=== PATIENT | male | born 1980 ===

== ENCOUNTER 2022-04-11 04:12 | Emergency (ER) | payer MEDICAID, SELFPAY ==
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
[2022-04-11 04:21] VITALS: BP 106/53; BP 118/72; PULSE 66; PULSE 71; RESP 14; TEMP 36.9; O2SAT 95; O2SAT 97; BMI 22.9
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
--- OUTSIDE RECORDS SUMMARY | 2022-04-11 04:40 | XMS_ITS ---
:1980 Author Care Team Providers Name Role Phone Minerva Sierra Primary Care Provider Unavailable Allergies Code Code System Name Reaction Severity Status Onset Septra ? ? Active ? Medications Name Status Start Date Stop Date ? ? clonidine Active ? Not available clonidine HCl 0.1 mg tablet Active ? Not available Take 1 tablet 3 times a day by oral route as needed for 28 days . hydroxyzine HCl 25 mg tablet Active ? Not available Take 1 tablet 3 times a day by oral route as needed for 28 days . Narcan 4 mg/actuation nasal spray Active ? Not available Take 1 spray by nasal route as needed. Suboxone 8 mg-2 mg sublingual film Active ? Not available Place 2 films every day by sublingual route in the morning for 7 days. Vistaril Active ? Not available Problems Name Status Onset Date Source ? Anxiety Disorder Active 04/07/2022 ? Alcohol Dependence Active 04/07/2022 ? Opioid Dependence Active 04/07/2022 ? Attention Deficit Hyperactivity Disorder Active 022 ? Procedures None recorded. Results Lab Results Date Name Specimen Result Interpretation Description Value Range Status Address ? 04/07/2022 Drug UR ? Amphetamines negative 1,000 Geri l [facility] Screen, NG/mL NG/mL Health: [address], [place] ? ? UR ? Benzodiazapines negative 200 Final [facility] NG/mL NG/mL Health: [address], [place] ? ? UR ? Buprenorphine positive 5 NG/mL Final [facility] NG/mL Health: [address], [place] ? ? UR ? Cocaine negative 150 Final [facility] Metabolite NG/mL NG/mL Health : [address], [place] ? ? UR ? Opiates negative 300 Final [facility] NG/mL NG/mL Health: [address], [place] ? ? UR ? Oxycodone negative 300 Final [facility] NG/mL NG/mL Health: [address], [place] ? ? UR ? Fentanyl negative 2 NG/mL Final [place] NG/mL Health: [address], [place] ? ? UR ? Ethyl Alcohol negative 10 Final [facility] mg/dL mg/dL Health: [address], [place] ? ? UR ? Methadone negative 300 Final [place] Metabolite NG/mL NG/mL Health : [address], [place] ? ? UR ? Cannabinoids negative 50 Final [facility] (THC) NG/mL NG/mL Health: [address], [place] ? ? UR ? Urine Creatinine 274.0 >20 Final [facility] mg/dL mg/dL Health: [address], [place] ? ? UR ? Urine pH 5.40 4.5-9.0 Final [facility] Health: [address], [place] ? ? UR ? Specific Mobile 1.027 1.003-1 Final [facility] .035 Health: [address], [place] 04/07/2022 Methadone Urine ? Methadone negative ? ? [facility]_ , , [place]: Screen, [address] [facility] 04/07/2022 Buprenorp Urine ? Buprenorphine positive ? ? [facility]_ [facility] er: Screen, [address] [facility] Past Encounters 04/07/2022 Opioid Dependence; Anxiety Disorder; Alc ohol Dependence Rosey Babcock COUPON AND BOND COLLECTION CLERK: [address] [place] [address], Ph. Social History Tobacco Smoking Status Heavy Tobacco Smoker (1/2 pack per da y) Vaccine List None recorded. Plan of Care Reminders Provider Appointments None recorded. ? ? Lab None recorded. ? ? Referral None recorded. ? ? Procedures None recorded. ? ? Surgeries None recorded. ? ? Imaging None recorded. ? ? Vitals Height Weight BMI 5 ft 10 in 165 lbs 23.7 kg/m2
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
== END 2022-04-11 06:18 ==
PROVIDERS: Emergency Provider Internal Medicine
DX: S01.81XA Laceration without foreign body of other part of head, initial encounter (principal); Y04.2XXA Assault by strike against or bumped into by another person, initial encounter; Y93.89 Activity, other specified; Y92.9 Unspecified place or not applicable; Y99.9 Unspecified external cause status
CPT/HCPCS: 12013; 70450; 70486; 99282; 99284

== ENCOUNTER 2022-11-17 13:27 | Emergency (ER) | payer OTHER, SELFPAY ==
[2022-11-17 13:30] VITALS: BP 110/63; BP 119/67; PULSE 70; PULSE 99; RESP 18; TEMP 37; O2SAT 95; O2SAT 96; BMI 24.4
--- NOTE | 2022-11-17 13:52 | PC.NURSE ---
pt was having episodes of apnea and his o2 sat dropped to the 40's. he required verbal and physical stimulation to wake him, he was placed on supplemental o2 nc
--- NOTE | 2022-11-17 14:32 | ED.CHESTPAIN ---
HPI - Chest Pain General Chief Complaint: Chest Pain Stated Complaint: chest pain,weakness Time Seen by Provider: 11/17/22 13:37 History of Present Illness HPI narrative: Patient is a 41-year-old male presenting today with having chest tightness. Has a long history of heroin use. Patient uses both IV drugs and also sniff the heroin. He is unable to give detailed history. Patient keeps falling asleep mid sentence. His O2 sat drops to the 80s. He is unable to give detailed history. He admits to using heroin yesterday. Related Data Allergies Allergy/AdvReac Type Severity Reaction Status Date / Time sulfamethoxazole Allergy Unknown Verified 11/17/22 13:39 [From ] trimethoprim [From ] Allergy Unknown Verified 11/17/22 13:39 Review of Systems Review of Systems: Unable to obtain review of system Yes Unobtainable due to mental status [facility], [facility] Past Medical History Attestation statement: The following information was validated with the patient. Social History Social History Advance Directives: No Advance Directives Information Provided: No Physical Exam Vital Signs: Vital Signs: Last Vital Signs Temp 98.6 F 11/17/22 13:30 Pulse 99 11/17/22 13:30 Resp 18 11/17/22 13:30 BP 110/63 11/17/22 13:30 Pulse Ox 96 11/17/22 13:30 O2 Del Method Room Air 11/17/22 13:30 BMI result Body Mass Index 24.4 Appearance: Alert. Lethargic arousable to painful stimuli. No acute distress. Eyes: Pupils equal, round and reactive to light. ENT: Pharynx normal. Neck: Normal inspection. Neck supple. No lymph nodes noted. No crepitus CVS: Normal heart rate and rhythm. Pulses normal. Normal S1 and S2 Respiratory: No respiratory distress. Breath sounds normal. No Wheezing. No rales Abdomen: Soft and nontender. No rigidity. No distention. good BS x4 Skin: Skin warm and dry. Normal skin color. Normal skin turgor. Extremities: No lower extremity edema. Neurovascular intact to all extremities. No Lacerations. No Rash Neuro: Lethargic arousable to painful stimuli. No motor deficit. No sensory deficit. Moving all extermities. No slurred speech Medications Administered Discontinued Medications Generic Name Dose Route Start Last Admin Trade Name Lluvia PRN Reason Stop Dose Admin Sodium Chloride 1,000 mls @ 999 mls/hr 11/17/22 14:30 11/17/22 14:32 Ns IV 11/17/22 15:30 999 mls/hr .Q1H1M ROMI Administration Naloxone HCl 4 mg 11/17/22 14:27 11/17/22 14:33 Naloxone Hcl Nasal 4 Mg [place] NOSTRILALT 11/17/22 14:28 4 mg ONCE ONE Administration Medical Decision Making Medical Decision Making [facility] Narrative: Patient's pupils were pinpoint. Falls asleep mid-sentence. As decreased O2 sat. Patient's sugar was checked to be 118 is no evidence of hypoglycemia. Has a history of heroin use. For Narcan was given. Patient woke up immediately. Is now answering questions completing sentences. He is in no distress and O2 sat recover. A set of cardiac enzymes being sent. Labs ordered. Will monitor patient closely. A chest x-ray was ordered to rule out the possibility of pneumonia/pneumothorax. Patient's chest x-ray was negative for any acute evidence of pneumonia pneumothorax. Monitor in the emergency department after Narcan was given patient is awake alert O2 sat is maintained there is no gross hypoxia noted. Patient's cardiac enzyme was negative. EKG did not show any acute evidence of ACS. Will discharge patient home. Patient was monitored in the emergency department for over 2 hours. Explained to patient in need to stop using narcotics and stop using cocaine patient states understanding. Did not want detox at this time. Will discharge home Differential Diagnosis Differential Diagnoses: The differential diagnosis associated with the presentation includes Hypoglycemia, narcotic overdose, cardiac causes of chest tightness, pneumonia, pneumothorax Lab Data [facility] Lab Attestation statement: I reviewed the patient's lab results. 11/17/22 14:30 11/17/22 14:30 Labs: Lab Results 11/17/22 11/17/22 11/17/22 Range/Units 14:18 14:30 14:30 WBC 6.5 (4.8-10.8) X10*3/uL RBC 3.81 L (4.60-5.80) X10*6/uL Hgb 12.8 L (14.0-18.0) g/dl Hct 37.5 L (42.0-52.0) % MCV 98.4 H (80.0-98.0) fL MCH 33.6 H (27.0-33.0) pg MCHC 34.1 (31.0-36.0) g/dl RDW 13.3 (11.0-16.0) % Plt Count 179 (160-400) X10*3/uL MPV 9.8 (9.4-12.4) fL Immature Gran % (Auto) 0.3 (0.0-0.4) % Neut % (Auto) 74.7 H (45-73) % Lymph % (Auto) 15.8 L (20-40) % [place] % (Auto) 8.4 (2-11) % Eos % (Auto) 0.6 (0-4) % Baso % (Auto) 0.2 (0-2) % Lymph # (Auto) 1.0 L (1.2-4.9) X10*3/uL [place] # (Auto) 0.6 (0.1-1.2) X10*3/uL Eos # (Auto) 0.0 (0.0-0.4) X10*3/uL Baso # (Auto) 0.0 (0.0-0.2) X10*3/uL Abs Immat Gran (auto) 0.02 (0.00-0.03) X10*3/uL Absolute Neuts (auto) 4.9 (2.0-8.3) x10*3/uL Absolute Nucleated RBC 0.000 (0.0-0.012) X10*3/uL Nucleated RBC % (auto) 0.0 (0.0-0.2) /100WBC Sodium 143 (135-145) mmol/L Potassium 3.6 (3.3-5.1) mmol/L Chloride 108 (96-108) mmol/L Carbon Dioxide 26 (22-29) mmol/L Anion Gap 13 (12-20) BUN 8 L (9-16) mg/dL Creatinine 0.76 (0.5-1.4) mg/dL Estim Creat Clear Calc 129.4 Estimated GFR > 60 POC Glucose 113 (60-115) mg/dL Random Glucose 109 (60-115) mg/dL Calcium 8.8 (8.4-10.2) mg/dL Troponin I High Sens (<3.5-35.0) ng/L Urine Color Urine Appearance Urine pH (5.0-9.0) Ur Specific [place] (1.005-1.025) Urine Protein (Neg-Trace) mg/dL Urine Glucose (UA) (Negative) mg/dL Urine Ketones (Negative) mg/dL Urine Blood (Negative) Urine Nitrite (Negative) Ur Leukocyte Esterase (Negative) Urine RBC (0-2) /HPF Urine WBC (0-5) /HPF Ur Squamous Epith Cells (0-2) /HPF Calcium Oxalate Crystal Urine Bacteria (None Seen) Hyaline Casts (0-2) /LPF Urine Opiates Screen (Not Detect) Urine Fentanyl Screen (Not Detect) Ur Barbiturates Screen (Not Detect) Ur Phencyclidine Scrn (Not Detect) Ur Amphetamines Screen (Not Detect) U Benzodiazepines Scrn (Not Detect) Urine Cocaine Screen (Not Detect) U Marijuana (THC) Screen (Not Detect) 11/17/22 11/17/22 11/17/22 Range/Units 14:30 15:17 15:17 WBC (4.8-10.8) X10*3/uL RBC (4.60-5.80) X10*6/uL Hgb (14.0-18.0) g/dl Hct (42.0-52.0) % MCV (80.0-98.0) fL MCH (27.0-33.0) pg MCHC (31.0-36.0) g/dl RDW (11.0-16.0) % Plt Count (160-400) X10*3/uL MPV (9.4-12.4) fL Immature Gran % (Auto) (0.0-0.4) % Neut % (Auto) (45-73) % Lymph % (Auto) (20-40) % [place] % (Auto) (2-11) % Eos % (Auto) (0-4) % Baso % (Auto) (0-2) % Lymph # (Auto) (1.2-4.9) X10*3/uL [place] # (Auto) (0.1-1.2) X10*3/uL Eos # (Auto) (0.0-0.4) X10*3/uL Baso # (Auto) (0.0-0.2) X10*3/uL Abs Immat Gran (auto) (0.00-0.03) X10*3/uL Absolute Neuts (auto) (2.0-8.3) x10*3/uL Absolute Nucleated RBC (0.0-0.012) X10*3/uL Nucleated RBC % (auto) (0.0-0.2) /100WBC Sodium (135-145) mmol/L Potassium (3.3-5.1) mmol/L Chloride (96-108) mmol/L Carbon Dioxide (22-29) mmol/L Anion Gap (12-20) BUN (9-16) mg/dL Creatinine (0.5-1.4) mg/dL Estim Creat Clear Calc Estimated GFR POC Glucose (60-115) mg/dL Random Glucose (60-115) mg/dL Calcium (8.4-10.2) mg/dL Troponin I High Sens 3.0 (<3.5-35.0) ng/L Urine Color Dark Yellow Urine Appearance Cloudy Urine pH 5.5 (5.0-9.0) Ur Specific [place] >= 1.030 H (1.005-1.025) Urine Protein 30 (1+) H (Neg-Trace) mg/dL Urine Glucose (UA) Negative (Negative) mg/dL Urine Ketones Trace (Negative) mg/dL Urine Blood Negative (Negative) Urine Nitrite Negative (Negative) Ur Leukocyte Esterase Negative (Negative) Urine RBC 3-5 H (0-2) /HPF Urine WBC 0-5 (0-5) /HPF Ur Squamous Epith Cells 0-2 (0-2) /HPF Calcium Oxalate Crystal Present Urine Bacteria None Seen (None Seen) Hyaline Casts 6-10 (0-2) /LPF Urine Opiates Screen Not Detected (Not Detect) Urine Fentanyl Screen POSITIVE H (Not Detect) Ur Barbiturates Screen Not Detected (Not Detect) Ur Phencyclidine Scrn Not Detected (Not Detect) Ur Amphetamines Screen Not Detected (Not Detect) U Benzodiazepines Scrn Not Detected (Not Detect) Urine Cocaine Screen POSITIVE H (Not Detect) U Marijuana (THC) Screen Not Detected (Not Detect) Independent Interpretation I performed an independent interpretation of an: EKG Interpretation: My interpretation patient's EKG showed a sinus rhythm heart rate is 60 [place] QRS QTC normal. There is no acute ST segment elevation. Diffuse T-wave flattening over the inferior leads. There is no old EKG to compare. Radiology Impression Discussion of test interpretation with radiology: I have reviewed the radiologist's reading. Independent Historian Clinical information obtained from an independent historian. History obtained from or confirmed by: Spouse Chronic Conditions Polysubstance abuse Social Determinants Patient?s care significantly limited by Social Determinants of Health including: Alcoholism and drug addiction in family Discharge Plan Discharge Clinical Impression: Chest pain, Cocaine abuse, Narcotic abuse Patient Disposition: Home, Self-Care Instructions: Cocaine Abuse (ED), Polysubstance Abuse (ED), Chest Pain (DC) Referrals: Physician,Miranda Whitfield [Primary Care Provider] - 11/19/22
== END 2022-11-17 16:33 | disposition home or self-care (01) ==
PROVIDERS: Emergency Provider Emergency Medicine Emergency Medical Services
DX: R07.9 Chest pain, unspecified (principal); F14.10 Cocaine abuse, uncomplicated; F19.10 Other psychoactive substance abuse, uncomplicated
CPT/HCPCS: 36415; 71045; 80048; 80307; 81001; 82947; 84484; 85025; 93005; 99284